=== PATIENT | male | born 1975 | race Caucasian/White ===

== ENCOUNTER 2021-07-22 00:41 | Emergency (ER) | payer OTHER ==
[~2021-07-22] VITALS: Ht 177.8 cm; Wt 90.7 kg
[2021-07-22] MEDS ORDERED: QUET200 PO (01:15)
[2021-07-22] MEDS ORDERED: MIRT30 PO (01:15)
[2021-07-22] MEDS ORDERED: CYCL10 PO (01:15)
== END 2021-07-22 03:10 | disposition home or self-care (01) ==
LOC: ER 00:41
DX: F20.9 Schizophrenia, unspecified (principal); Z76.0 Encounter for issue of repeat prescription; F17.210 Nicotine dependence, cigarettes, uncomplicated
CPT/HCPCS: 99281; A9270

== ENCOUNTER 2021-08-03 12:12 | Emergency (ER) | payer OTHER ==
[~2021-08-03] VITALS: Ht 177.8 cm; Wt 90.7 kg
[~2021-08-03 12:12] MED LIST: CYCL10 PO; MIRT30 PO; QUET200 PO
[2021-08-03] MEDS ORDERED: QUET200 PO (14:35)
[2021-08-03] MEDS ORDERED: MIRT30 PO (14:35)
[2021-08-03] MEDS ORDERED: CYCL10 PO ×2 (14:35→14:36)
== END 2021-08-03 15:30 | disposition home or self-care (01) ==
LOC: ER 12:12
DX: F22 Delusional disorders (principal); Z76.0 Encounter for issue of repeat prescription; Z79.899 Other long term (current) drug therapy; F17.210 Nicotine dependence, cigarettes, uncomplicated
CPT/HCPCS: 99281

== ENCOUNTER 2021-08-23 15:50 | Emergency (ER) | payer OTHER ==
[~2021-08-23] VITALS: Ht 177.8 cm; Wt 90.7 kg
[2021-08-23] MEDS ORDERED: QUET200 PO (16:30)
[2021-08-23] MEDS ORDERED: MIRT30 PO (16:30)
== END 2021-08-23 16:50 | disposition home or self-care (01) ==
LOC: ER 15:50
DX: Z76.0 Encounter for issue of repeat prescription (principal); Z79.899 Other long term (current) drug therapy; F17.210 Nicotine dependence, cigarettes, uncomplicated
CPT/HCPCS: 99281

== ENCOUNTER 2021-10-10 11:42 | Emergency (ER) | payer OTHER ==
[~2021-10-10] VITALS: Ht 177.8 cm; Wt 90.7 kg
[2021-10-10] MEDS ORDERED: CYCL10 PO (11:54)
[2021-10-10] MEDS ORDERED: QUET200 PO (11:54)
[2021-10-10] MEDS ORDERED: MIRT30 PO (11:54)
== END 2021-10-10 11:59 | disposition home or self-care (01) ==
LOC: ER 11:42
DX: Z76.0 Encounter for issue of repeat prescription (principal); F17.210 Nicotine dependence, cigarettes, uncomplicated
CPT/HCPCS: 99281

== ENCOUNTER 2021-10-23 12:47 | Emergency (ER) | payer OTHER ==
[~2021-10-23] VITALS: Ht 177.8 cm; Wt 90.7 kg
[2021-10-23 13:15] LABS: BASOPHILS ABSOLUTE AUTO 0.06 K/mm3 (0.00-0.23); BASOPHILS PERCENT AUTO 1 % (0-2); EOSINOPHILS PERCENT AUTO 4 % (0-6); Hematocrit 41.6 % (37.0-53.0); Hemoglobin 13.8 g/dL (13.5-17.5); IMMATURE GRAN ABSOLUTE AUTO 0.02 K/mm3 (0.00-0.10); IMMATURE GRAN PERCENT AUTO 0 % (0-1); LYMPHOCYTES ABSOLUTE AUTO 2.25 K/mm3 (0.84-5.20); LYMPHOCYTES PERCENT AUTO 33 % (21-46); MONOCYTES ABSOLUTE AUTO 0.55 K/mm3 (0.16-1.47); MONOCYTES PERCENT AUTO 8 % (4-13); Mean Corpuscular HGB 31.4 pg (26.0-34.0); Mean Corpuscular HGB Conc 33.2 g/dL (31.5-36.5); Mean Corpuscular Volume 95 fL (80-100); Mean Platelet Volume 8.7 fL (9.1-12.4); NEUTROPHILS ABSOLUTE AUTO 3.61 K/mm3 (1.96-9.15); NEUTROPHILS PERCENT AUTO 53 % (41-73); Platelet Count 333 K/mm3 (150-400); RDW Coefficient Variation 13.2 % (11.7-14.2); RDW Standard Deviation 46.4 fL (35.1-46.3); White Blood Cell Count 6.79 K/mm3 (4.00-11.30)
[2021-10-23 13:49] LABS: Alanine Aminotransfer (ALT/SGP 38 U/L (12-78); Albumin, Blood 3.6 g/dL (3.4-5.0); Albumin/Globulin Ratio 0.9 (0.8-1.8); Alk Phos 103 U/L (50-136); Anion Gap 6 mmol/L (6-16); Aspartate Aminotrans (AST/SGOT 18 U/L (12-37); Bilirubin, Total 0.2 mg/dL (0.1-1.0); Blood Urea Nitrogen 25 mg/dL (8-24); Bun/Creatinine Ratio 25.1 (12.0-20.0); CO2, Blood 30 mmol/L (21-32); Calcium, Blood 9.3 mg/dL (8.5-10.1); Chloride, Blood 102 mmol/L (98-108); Glomerular Filtration Rate >60 (60-); Glucose, Blood 103 mg/dL (70-99); Potassium, Blood 4.3 mmol/L (3.5-5.5); Sodium, Blood 138 mmol/L (136-145); Total Protein, Blood 7.6 g/dL (6.4-8.2); Uric Acid, Blood 5.6 mg/dL (3.5-7.2)
[2021-10-23] MEDS ORDERED: COLCHICINE0.6 MG PO (14:02)
[2021-10-23] MEDS ORDERED: IBU800 MG PO (14:02)
== END 2021-10-23 14:27 | disposition home or self-care (01) ==
LOC: ER 12:47
PROVIDERS: Physician Assistant
DX: M10.9 Gout, unspecified (principal); F17.210 Nicotine dependence, cigarettes, uncomplicated; Z79.899 Other long term (current) drug therapy
CPT/HCPCS: 73630; 80053; 84550; 85025; 99283-25; A9270

== ENCOUNTER 2021-10-27 10:39 | Emergency (ER) | payer OTHER ==
[~2021-10-27] VITALS: Ht 177.8 cm; Wt 91.8 kg
[~2021-10-27 10:39] MED LIST changes: +COLCHICINE0.6 MG PO; +IBU800 MG PO
[2021-10-27] MEDS ORDERED: MIRT30 PO (11:30)
[2021-10-27] MEDS ORDERED: CYCL10 PO (11:30)
[2021-10-27] MEDS ORDERED: QUET200 PO (11:30)
== END 2021-10-27 11:30 | disposition home or self-care (01) ==
LOC: ER 10:39
DX: Z76.0 Encounter for issue of repeat prescription (principal)
CPT/HCPCS: 99281

== ENCOUNTER 2021-10-31 18:11 | Emergency (ER) | payer OTHER ==
[~2021-10-31] VITALS: Ht 177.8 cm; Wt 92.7 kg
== END 2021-10-31 19:26 | disposition left against medical advice (07) ==
LOC: ER 18:11
DX: Z76.0 Encounter for issue of repeat prescription (principal); R45.1 Restlessness and agitation; Z53.21 Procedure and treatment not carried out due to patient leaving prior to being seen by health care provider
CPT/HCPCS: 99281

== ENCOUNTER 2021-12-13 21:37 | Emergency (ER) | payer OTHER ==
[~2021-12-13] VITALS: Ht 175.3 cm; Wt 90.7 kg
[2021-12-13 23:00] LABS: BASOPHILS ABSOLUTE AUTO 0.05 K/mm3 (0.00-0.23); BASOPHILS PERCENT AUTO 0 % (0-2); EOSINOPHILS ABSOLUTE AUTO 0.15 K/mm3 (0.00-0.68); EOSINOPHILS PERCENT AUTO 1 % (0-6); Hematocrit 36.6 % (37.0-53.0); Hemoglobin 12.1 g/dL (13.5-17.5); IMMATURE GRAN ABSOLUTE AUTO 0.03 K/mm3 (0.00-0.10); IMMATURE GRAN PERCENT AUTO 0 % (0-1); LYMPHOCYTES ABSOLUTE AUTO 1.75 K/mm3 (0.84-5.20); LYMPHOCYTES PERCENT AUTO 15 % (21-46); MONOCYTES ABSOLUTE AUTO 1.04 K/mm3 (0.16-1.47); MONOCYTES PERCENT AUTO 9 % (4-13); Mean Corpuscular HGB 31.2 pg (26.0-34.0); Mean Corpuscular HGB Conc 33.1 g/dL (31.5-36.5); Mean Corpuscular Volume 94 fL (80-100); Mean Platelet Volume 8.9 fL (9.1-12.4); NEUTROPHILS PERCENT AUTO 74 % (41-73); Platelet Count 316 K/mm3 (150-400); RDW Coefficient Variation 12.5 % (11.7-14.2); RDW Standard Deviation 43.3 fL (35.1-46.3); Red Blood Cell Count 3.88 M/mm3 (4.30-5.90); White Blood Cell Count 11.52 K/mm3 (4.00-11.30)
[2021-12-13 23:23] LABS: Albumin, Blood 3.5 g/dL (3.4-5.0); Albumin/Globulin Ratio 0.9 (0.8-1.8); Bilirubin, Total 0.4 mg/dL (0.1-1.0); Bun/Creatinine Ratio 13.6 (12.0-20.0); Calcium, Blood 8.8 mg/dL (8.5-10.1); Creatinine, Blood 1.03 mg/dL (0.60-1.20); Globulin, Blood 3.7 g/dL (2.2-4.0); Potassium, Blood 4.1 mmol/L (3.5-5.5); Total Protein, Blood 7.2 g/dL (6.4-8.2)
[2021-12-13] MEDS ORDERED: AMOCLA875 PO (23:43)
== END 2021-12-14 00:01 | disposition home or self-care (01) ==
LOC: ER 21:37
PROVIDERS: Emergency Medicine
DX: S51.852A Open bite of left forearm, initial encounter (principal); L03.114 Cellulitis of left upper limb; F17.210 Nicotine dependence, cigarettes, uncomplicated; F20.9 Schizophrenia, unspecified; Z23 Encounter for immunization; Z79.899 Other long term (current) drug therapy; W54.0XXA Bitten by dog, initial encounter; Y92.9 Unspecified place or not applicable
CPT/HCPCS: 36415; 80053; 83605; 85025; 90471; 90714; 99283; A9270

== ENCOUNTER 2021-12-22 10:06 | Emergency (ER) | payer OTHER ==
[~2021-12-22] VITALS: Ht 175.3 cm; Wt 90.7 kg
[~2021-12-22 10:06] MED LIST changes: +AMOCLA875 PO
[2021-12-22] MEDS ORDERED: QUET200 PO (10:41)
[2021-12-22] MEDS ORDERED: CYCL10 PO (10:41)
== END 2021-12-22 10:47 | disposition home or self-care (01) ==
LOC: ER 10:06
DX: Z76.0 Encounter for issue of repeat prescription (principal); F20.9 Schizophrenia, unspecified; F17.210 Nicotine dependence, cigarettes, uncomplicated; Z79.899 Other long term (current) drug therapy
CPT/HCPCS: 99281

== ENCOUNTER 2021-12-30 13:27 | Emergency (ER) | payer OTHER ==
[~2021-12-30] VITALS: Ht 175.3 cm; Wt 90.7 kg
[2021-12-30] MEDS ORDERED: QUET200 PO (13:45)
== END 2021-12-30 13:49 | disposition home or self-care (01) ==
LOC: ER 13:27
DX: Z76.0 Encounter for issue of repeat prescription (principal); F17.210 Nicotine dependence, cigarettes, uncomplicated; Z79.899 Other long term (current) drug therapy
CPT/HCPCS: 99281

== ENCOUNTER 2022-04-11 07:09 | Emergency (ER) | payer OTHER ==
[~2022-04-11] VITALS: Ht 177.8 cm; Wt 90.7 kg
[2022-04-11] MEDS ORDERED: AMIT25 PO ×2 (07:20→07:49)
[2022-04-11] MEDS ORDERED: QUET200 PO (07:49)
[2022-04-11] MEDS ORDERED: MIRT30 PO (07:49)
== END 2022-04-11 07:55 | disposition home or self-care (01) ==
LOC: ER 07:09
DX: Z76.0 Encounter for issue of repeat prescription (principal); F20.9 Schizophrenia, unspecified; F17.210 Nicotine dependence, cigarettes, uncomplicated; F17.220 Nicotine dependence, chewing tobacco, uncomplicated
CPT/HCPCS: 99281

== ENCOUNTER 2022-04-23 15:43 | Emergency (ER) | payer OTHER ==
[~2022-04-23] VITALS: Ht 175.3 cm; Wt 84.8 kg
[~2022-04-23 15:43] MED LIST changes: +AMIT25 PO
[2022-04-23] MEDS ORDERED: CYCL10 PO (16:20)
[2022-04-23] MEDS ORDERED: MIRT30 PO (16:20)
[2022-04-23] MEDS ORDERED: QUETIAPINE FUM400 M2 PO (16:20)
== END 2022-04-23 16:41 | disposition home or self-care (01) ==
LOC: ER 15:43
DX: Z76.0 Encounter for issue of repeat prescription (principal); Z79.899 Other long term (current) drug therapy; F17.210 Nicotine dependence, cigarettes, uncomplicated; F17.220 Nicotine dependence, chewing tobacco, uncomplicated
CPT/HCPCS: 99281

== ENCOUNTER 2022-05-05 05:51 | Emergency (ER) | payer OTHER ==
[~2022-05-05] VITALS: Ht 177.8 cm; Wt 90.7 kg
[~2022-05-05 05:51] MED LIST changes: +QUETIAPINE FUM400 M2 PO
[2022-05-05] MEDS ORDERED: QUETIAPINE FUM PO (07:02)
[2022-05-05] MEDS ORDERED: AMIT25 PO (07:02)
[2022-05-05] MEDS ORDERED: CYCL10 PO (07:02)
== END 2022-05-05 07:06 | disposition home or self-care (01) ==
LOC: ER 05:51
DX: F15.10 Other stimulant abuse, uncomplicated (principal); Z76.0 Encounter for issue of repeat prescription; F17.210 Nicotine dependence, cigarettes, uncomplicated; F17.220 Nicotine dependence, chewing tobacco, uncomplicated
CPT/HCPCS: 99281

== ENCOUNTER 2022-05-09 05:26 | Emergency (ER) | payer OTHER ==
[~2022-05-09] VITALS: Ht 177.8 cm; Wt 90.7 kg
[~2022-05-09 05:26] MED LIST changes: +QUETIAPINE FUM PO
[2022-05-09] MEDS ORDERED: CYCL10 PO (06:21)
== END 2022-05-09 06:23 | disposition home or self-care (01) ==
LOC: ER 05:26
DX: Z76.0 Encounter for issue of repeat prescription (principal); F17.210 Nicotine dependence, cigarettes, uncomplicated; Z79.899 Other long term (current) drug therapy
CPT/HCPCS: 99281

== ENCOUNTER 2022-07-26 13:49 | Emergency (ER) | payer OTHER ==
[~2022-07-26] VITALS: Ht 175.3 cm; Wt 90.7 kg
[2022-07-26] MEDS ORDERED: QUETIAPINE FUM400 M2 PO (14:04)
[2022-07-26] MEDS ORDERED: MIRT15ST PO (14:05)
[2022-07-26] MEDS ORDERED: CYCL10 PO ×2 (14:05→14:07)
[2022-07-26] MEDS ORDERED: MIRT15 PO (14:07)
[2022-07-26] MEDS ORDERED: Seroquel Xr400 MG PO (14:07)
== END 2022-07-26 14:06 | disposition home or self-care (01) ==
LOC: ER 13:49
DX: Z76.0 Encounter for issue of repeat prescription (principal); F17.210 Nicotine dependence, cigarettes, uncomplicated; Z79.899 Other long term (current) drug therapy
CPT/HCPCS: 99281

== ENCOUNTER 2022-07-29 16:05 | Emergency (ER) | payer OTHER ==
[~2022-07-29] VITALS: Ht 175.3 cm; Wt 90.7 kg
[~2022-07-29 16:05] MED LIST changes: +MIRT15 PO; +MIRT15ST PO; +Seroquel Xr400 MG PO
[2022-07-30] MEDS ORDERED: SEROQUEL PO (12:07)
[2022-07-30] MEDS ORDERED: MIRT15 PO (12:07)
== END 2022-07-29 17:44 | disposition home or self-care (01) ==
LOC: ER 16:05
DX: Z76.0 Encounter for issue of repeat prescription (principal); F17.210 Nicotine dependence, cigarettes, uncomplicated; Z79.899 Other long term (current) drug therapy
CPT/HCPCS: 99281; A9270

== ENCOUNTER 2022-07-30 11:38 | Emergency (ER) | payer OTHER ==
[~2022-07-30] VITALS: Ht 177.8 cm; Wt 90.7 kg
[2022-07-30] MEDS ORDERED: SEROQUEL PO (12:07)
[2022-07-30] MEDS ORDERED: MIRT15 PO (12:07)
== END 2022-07-30 12:09 | disposition home or self-care (01) ==
LOC: ER 11:38
DX: Z76.0 Encounter for issue of repeat prescription (principal); F20.9 Schizophrenia, unspecified; F17.210 Nicotine dependence, cigarettes, uncomplicated; Z79.899 Other long term (current) drug therapy
CPT/HCPCS: 99281

== ENCOUNTER 2022-08-04 09:02 | Emergency (ER) | payer OTHER ==
[~2022-08-04] VITALS: Ht 175.3 cm; Wt 86.2 kg
[~2022-08-04 09:02] MED LIST changes: +SEROQUEL PO
== END 2022-08-04 09:57 | disposition home or self-care (01) ==
LOC: ER 09:02
DX: Z76.0 Encounter for issue of repeat prescription (principal); F17.210 Nicotine dependence, cigarettes, uncomplicated
CPT/HCPCS: A9270

== ENCOUNTER 2022-08-06 16:40 | Emergency (ER) | payer OTHER ==
[~2022-08-06] VITALS: Ht 177.8 cm; Wt 90.7 kg
== END 2022-08-06 17:22 | disposition home or self-care (01) ==
LOC: ER 16:40
DX: Z76.0 Encounter for issue of repeat prescription (principal); F17.210 Nicotine dependence, cigarettes, uncomplicated; Z79.899 Other long term (current) drug therapy
CPT/HCPCS: 99281

== ENCOUNTER 2022-08-08 13:24 | Emergency (ER) | payer OTHER ==
[~2022-08-08] VITALS: Ht 175.3 cm; Wt 86.2 kg
== END 2022-08-08 14:04 | disposition home or self-care (01) ==
LOC: ER 13:24
DX: Z76.0 Encounter for issue of repeat prescription (principal); F17.210 Nicotine dependence, cigarettes, uncomplicated; Z79.899 Other long term (current) drug therapy
CPT/HCPCS: 99281

== ENCOUNTER 2022-08-11 10:08 | Emergency (ER) | payer OTHER ==
[~2022-08-11] VITALS: Ht 175.3 cm; Wt 90.7 kg
[2022-08-11] MEDS ORDERED: MIRT15ST PO (10:48)
[2022-08-11] MEDS ORDERED: CYCL10 PO (10:48)
[2022-08-11] MEDS ORDERED: QUET200 PO ×2 (10:48→10:51)
== END 2022-08-11 10:57 | disposition home or self-care (01) ==
LOC: ER 10:08
DX: Z76.0 Encounter for issue of repeat prescription (principal); F17.210 Nicotine dependence, cigarettes, uncomplicated; Z79.899 Other long term (current) drug therapy
CPT/HCPCS: 99281

== ENCOUNTER 2022-09-03 17:39 | Emergency (ER) | payer OTHER ==
[~2022-09-03] VITALS: Ht 177.8 cm; Wt 90.7 kg
== END 2022-09-03 18:37 | disposition home or self-care (01) ==
LOC: ER 17:39
DX: Z76.0 Encounter for issue of repeat prescription (principal); F17.210 Nicotine dependence, cigarettes, uncomplicated; Z79.899 Other long term (current) drug therapy
CPT/HCPCS: 99281

== ENCOUNTER 2022-09-04 12:15 | Emergency (ER) | payer OTHER ==
[~2022-09-04] VITALS: Ht 177.8 cm; Wt 90.7 kg
== END 2022-09-04 12:33 | disposition home or self-care (01) ==
LOC: ER 12:15
DX: Z76.0 Encounter for issue of repeat prescription (principal); F17.210 Nicotine dependence, cigarettes, uncomplicated; F17.220 Nicotine dependence, chewing tobacco, uncomplicated
CPT/HCPCS: 99281; A9270

== ENCOUNTER 2022-09-07 12:26 | Emergency (ER) | payer OTHER ==
[~2022-09-07] VITALS: Ht 177.8 cm; Wt 90.7 kg
[2022-09-07] MEDS ORDERED: QUET200 PO (13:01)
[2022-09-07] MEDS ORDERED: MIRT15ST PO (13:01)
== END 2022-09-07 13:01 | disposition left against medical advice (07) ==
LOC: ER 12:26
DX: Z76.0 Encounter for issue of repeat prescription (principal); Z53.21 Procedure and treatment not carried out due to patient leaving prior to being seen by health care provider
CPT/HCPCS: 99281

== ENCOUNTER 2022-09-09 11:00 | Emergency (ER) | payer OTHER ==
[~2022-09-09] VITALS: Ht 182.9 cm; Wt 79.4 kg
== END 2022-09-09 11:19 | disposition home or self-care (01) ==
LOC: ER 11:00
DX: Z76.0 Encounter for issue of repeat prescription (principal); F15.90 Other stimulant use, unspecified, uncomplicated; F17.220 Nicotine dependence, chewing tobacco, uncomplicated; Z79.899 Other long term (current) drug therapy
CPT/HCPCS: 99281

== ENCOUNTER 2022-09-11 11:53 | Emergency (ER) | payer OTHER ==
[~2022-09-11] VITALS: Ht 175.3 cm; Wt 90.7 kg
== END 2022-09-11 12:44 | disposition home or self-care (01) ==
LOC: ER 11:53
DX: Z76.0 Encounter for issue of repeat prescription (principal); Z79.899 Other long term (current) drug therapy; F17.210 Nicotine dependence, cigarettes, uncomplicated; F17.220 Nicotine dependence, chewing tobacco, uncomplicated
CPT/HCPCS: 99281